=== PATIENT | male | born 1960 | race Caucasian/White ===

== ENCOUNTER 2019-04-08 01:29 | Observation (INO) ==
[2019-04-08] MEDS ORDERED: 0.9 % Sodium Chloride 1,000 ML ONE (02:05)
[2019-04-08] MEDS ORDERED: 0.9 % Sodium Chloride 1,000 ML IV ONE (02:11)
[2019-04-08 02:17] LABS: Hematocrit 41.3 % (37.5-50.1); Hemoglobin 14.5 g/dL (12.9-16.9); Mean Corpuscular HGB Conc 35.1 g/dL (31.6-35.5); Mean Corpuscular Hemoglobin 31.4 pg (28.0-33.3); Mean Corpuscular Volume 89.4 fL (83.0-100.0); Mean Platelet Volume 10.3 fL (9.4-12.4); Platelet Count 214 K/mcL (140-400); Red Blood Count 4.62 M/mcL (4.19-5.50); Red Cell Distribution Width 13.2 % (11.5-14.5); White Blood Count 7.4 K/mcL (4.3-11.1)
[2019-04-08 02:23] LABS: Prothrombin Time 11.6 Seconds (9.4-12.1)
[2019-04-08 02:26] LABS: Activated Partial Thrombo Time 28.9 Seconds (26.0-36.0)
[2019-04-08 02:36] LABS: BUN/Creatinine Ratio 13 (6-26); Blood Urea Nitrogen 13 mg/dL (6-20); Calcium 8.6 mg/dL (8.6-10.3); Carbon Dioxide 22 mEq/L (23-29); Chloride 108 mEq/L (98-107); Glucose 232 mg/dL (70-105); Osmolality,Calculated 292 (280-300); Potassium 3.9 mEq/L (3.5-5.1); Sodium 137 mEq/L (136-145); Troponin I < 0.03 ng/mL (< 0.04); eGFR For African Americans > 60 (> 60); eGFR For Non-African Americans > 60 (> 60)
[2019-04-08] MEDS ORDERED: Naloxone 0.4 MG/ML INJ IVP PRN (07:10)
[2019-04-08] MEDS: 0.9 % Sodium Chloride 1,000 ML IVC SCH ×2 (09:59→20:00)
[2019-04-08] MEDS: Aspirin Enteric Coated 81 MG Tablet PO SCH (16:20)
[2019-04-08] MEDS: Gabapentin 300 MG CAPSULE PO SCH ×2 (16:20→21:03)
[2019-04-08 17:29] LABS: Bilirubin,Urine Negative (Negative); Blood,Urine Negative (Negative); Clarity,Urine Clear (Clear); Color,Urine Yellow (Yellow); Glucose,Urine (UA) Normal (Normal); Ketones,Urine Negative (Negative); Leukocyte Esterase,Urine Negative (Negative); Nitrite,Urine Negative (Negative); Protein,Urine Negative (Neg-Trace); Specific Gravity,Urine 1.011 (1.010-1.025); Urobilinogen,Urine Normal (Normal)
[2019-04-09] MEDS: Venlafaxine XR (24 HR) 75 MG CAP.ER.24H PO SCH (11:13)
[2019-04-09] MEDS: Gabapentin 300 MG CAPSULE PO SCH ×3 (11:14→21:07)
[2019-04-09] MEDS: Aspirin Enteric Coated 81 MG Tablet PO SCH (11:14)
[2019-04-09] MEDS: Cyanocobalamin (B-12) 1,000 MCG TABLET PO SCH (11:14)
[2019-04-09] MEDS: tiZANidine 4 MG TABLET PO SCH (11:14)
[2019-04-09] MEDS: Metoprolol XL (24 HR) Succ 50 MG TAB.ER.24H PO SCH (11:14)
[2019-04-09 15:41] LABS: Prothrombin Time 11.8 Seconds (9.4-12.1)
[2019-04-09 15:49] LABS: Alanine Aminotransferase 24 Units/L (7-52); Albumin 3.4 g/dL (3.5-5.7); Albumin/Globulin Ratio 1.4 (1.1-2.2); Alkaline Phosphatase 62 Units/L (34-104); Aspartate Amino Transferase 26 Units/L (13-39); BUN/Creatinine Ratio 10 (6-26); Bilirubin,Total 0.6 mg/dL (0.3-1.0); Blood Urea Nitrogen 9 mg/dL (6-20); Calcium 8.6 mg/dL (8.6-10.3); Carbon Dioxide 22 mEq/L (23-29); Chloride 111 mEq/L (98-107); Chol/HDL Ratio 4.1 (0-4.9); Cholesterol 99 mg/dL (< 200); Globulin 2.5 g/dL (2.4-3.5); Glucose 147 mg/dL (70-105); HDL Cholesterol 24 mg/dL (40-59); LDL Cholesterol,Calculated 43 mg/dL (0-99); Osmolality,Calculated 285 (280-300); Potassium 3.8 mEq/L (3.5-5.1); Sodium 137 mEq/L (136-145); Total Protein 5.9 g/dL (6.4-8.9); Triglycerides 160 mg/dL (< 150); eGFR For African Americans > 60 (> 60); eGFR For Non-African Americans > 60 (> 60)
[2019-04-09 16:50] LABS: Estimated Average Glucose 157 mg/dl
[2019-04-09] MEDS: (Valbenazine Tosylate [Ingrezza] 80 MG) PO SCH (18:27)
[2019-04-10] MEDS ORDERED: ANDRODERM TP SCH (01:00)
[2019-04-10] MEDS ORDERED: Melatonin 3 MG TABLET PO PRN (01:01)
[2019-04-10 08:08] VITALS: BP 132/99
[2019-04-10] MEDS: tiZANidine 4 MG TABLET PO SCH (09:59)
[2019-04-10] MEDS: Cyanocobalamin (B-12) 1,000 MCG TABLET PO SCH (09:59)
[2019-04-10] MEDS: Gabapentin 300 MG CAPSULE PO SCH (09:59)
[2019-04-10] MEDS: Metoprolol XL (24 HR) Succ 50 MG TAB.ER.24H PO SCH (09:59)
[2019-04-10] MEDS: Venlafaxine XR (24 HR) 75 MG CAP.ER.24H PO SCH (10:00)
[2019-04-10] MEDS: Aspirin Enteric Coated 81 MG Tablet PO SCH (10:00)
[2019-04-10] MEDS: (Valbenazine Tosylate [Ingrezza] 80 MG) PO SCH (10:00)
== END 2019-04-10 10:52 | disposition home or self-care (01) ==
LOC: EMEROOARM 01:29 → 2NENU 01:29 → SUATTDRO 04:32 → 2NENU 06:25
PROVIDERS: ADMIT Internal Medicine; ATTEND Internal Medicine